=== PATIENT | female | born 1990 | race Caucasian/White ===

== ENCOUNTER 2017-03-01 17:58 | Inpatient (IN) | payer BC ==
[~2017-03-01] VITALS: Ht 162.6 cm; Wt 103.3 kg
[2017-03-01 20:00] VITALS: BP 124/65; RESP 18
[2017-03-01] MEDS: HYDROmorphONE 1 MG/ML SYG IV PRN (21:46)
[2017-03-01 21:59] VITALS: Ht 162.6 cm; Wt 103.3 kg
[2017-03-01] MEDS: HYDROCODONE/APAP (5/325) TAB PO PRN (23:40)
[2017-03-02] MEDS ORDERED: MAGNESIUM HYDROXIDE 30ML CUP PO PRN (03:06)
[2017-03-02] MEDS ORDERED: LACTULOSE 30ML CUP PO PRN (03:06)
[2017-03-02] MEDS ORDERED: ACETAMINOPHEN 325 MG TAB PO PRN (03:06)
[2017-03-02] MEDS ORDERED: BISACODYL 10 MG SUPP PR PRN (03:06)
[2017-03-02] MEDS: HYDROCODONE/APAP (5/325) TAB PO PRN ×5 (03:27→23:44)
[2017-03-02 03:59] LABS: ADD UMIC YES; URINE BILIRUBIN (Dip) NEGATIVE (NEGATIVE); URINE BLOOD (Dip) 2+ (NEGATIVE); URINE COLOR LT. YELLOW (YELLOW); URINE GLUCOSE (Dip) NEGATIVE (NEGATIVE); URINE KETONES (Dip) NEGATIVE (NEGATIVE); URINE LEUKOCYTE ESTERASE (Dip) NEGATIVE (NEGATIVE); URINE NITRITE (Dip) NEGATIVE (NEGATIVE); URINE TOTAL PROTEIN (Dip) NEGATIVE (NEGATIVE); URINE UROBILINOGEN (Dip) 1.0 E.U./dL (0.1-1.0)
[2017-03-02 04:23] LABS: BACTERIA,URINE MODERATE; SQUAMOUS EPITHELIAL CELL,UR MODERATE; URINE RBCS 0-2 /HPF (0)
[2017-03-02 06:52] LABS: ADD SCAN DIFF NO
[2017-03-02 06:56] LABS: BASOPHIL # 0.1 10^3/ul (0.0-0.1); BASOPHILS % 0.9 % (0.0-2.0); EOSINOPHILS # 0.6 10^3/ul (0.0-0.5); EOSINOPHILS % 6.6 % (0.0-7.0); HEMATOCRIT 27.6 % (37.0-47.0); HEMOGLOBIN 8.6 g/dl (12.0-16.0); LYMPHOCYTES % 23.5 % (15.0-51.0); MEAN CORPUSCULAR HGB CONC 31.2 g/dl (32.0-37.0); MEAN CORPUSCULAR VOLUME 96.2 fl (82.0-101.0); MEAN PLATELET VOLUME 9.6 fl (7.4-10.4); MONOCYTE # 0.7 10^3/ul (0.3-0.9); MONOCYTES % 8.8 % (0.0-11.0); NEUTROPHILS % 59.7 % (39.0-77.0); PLATELET COUNT 469 10^3/UL (140-415); RED BLOOD COUNT 2.87 10^6/ul (4.20-5.40); RED CELL DISTRIBUTION WIDTH 16.2 % (11.5-14.5); WHITE BLOOD COUNT 8.4 10^3/ul (4.8-10.8)
[2017-03-02 07:17] LABS: ALBUMIN 3.6 g/dl (3.3-4.9); ALBUMIN/GLOBULIN RATIO 1.38; BILIRUBIN,INDIRECT 0.2 mg/dl (0-1.1); BILIRUBIN,TOTAL 0.2 mg/dl (0.2-1.3); CALCIUM 8.5 mg/dl (8.4-10.2); CREATININE 0.53 mg/dl (0.44-1.00); POTASSIUM 4.2 mmol/L (3.5-5.1); TOTAL PROTEIN 6.2 g/dl (6.1-8.1)
[2017-03-02 07:46] VITALS: BP 116/75; RESP 18
[2017-03-02] MEDS: HYDROmorphONE 1 MG/ML SYG IV PRN ×3 (08:00→20:16)
[2017-03-02] MEDS: DOCUSATE SODIUM 100 MG CAP PO SCH ×2 (09:22→20:15)
[2017-03-02] MEDS: POLYETHYLENE GLYCOL 17 GM PACKET PO SCH (09:22)
[2017-03-02] MEDS: ENOXAPARIN 40 MG/0.4 ML SYG SC SCH (09:30)
[2017-03-02 10:00] VITALS: BP 111/64; RESP 18
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
[2017-03-02] MEDS: SENNA TAB PO SCH (20:15)
[2017-03-03 07:30] VITALS: BP 107/75; RESP 20
[2017-03-03] MEDS: HYDROmorphONE 1 MG/ML SYG IV PRN ×3 (07:43→20:57)
[2017-03-03] MEDS: POLYETHYLENE GLYCOL 17 GM PACKET PO SCH (08:53)
[2017-03-03] MEDS: DOCUSATE SODIUM 100 MG CAP PO SCH ×2 (08:53→20:56)
[2017-03-03] MEDS: ENOXAPARIN 40 MG/0.4 ML SYG SC SCH (08:56)
[2017-03-03] MEDS: HYDROCODONE/APAP (5/325) TAB PO PRN ×2 (10:59→18:16)
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
[2017-03-03 20:08] VITALS: BP 116/70; RESP 18
[2017-03-03] MEDS: SENNA TAB PO SCH (20:57)
[2017-03-04] MEDS: HYDROCODONE/APAP (5/325) TAB PO PRN ×3 (00:25→16:02)
[2017-03-04] MEDS: HYDROmorphONE 1 MG/ML SYG IV PRN ×4 (07:14→20:21)
[2017-03-04] MEDS: DOCUSATE SODIUM 100 MG CAP PO SCH ×2 (08:58→20:20)
[2017-03-04] MEDS: POLYETHYLENE GLYCOL 17 GM PACKET PO SCH (08:58)
[2017-03-04] MEDS: ENOXAPARIN 40 MG/0.4 ML SYG SC SCH (09:09)
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
[2017-03-04] MEDS ORDERED: HYDROmorphONE 1 MG/ML SYG IV STA (10:46)
--- NOTE | 2017-03-04 10:46 | RADRPT ---
PROCEDURE: XR Chest. CLINICAL INDICATION: History of pneumothorax with chest tube placement. Dyspnea. TECHNIQUE: Single frontal chest x-ray. COMPARISON: None. FINDINGS: There is pleural thickening or fluid seen along the right lateral thorax and costophrenic angle. Fo edenilson atelectasis is also seen in the right costophrenic angle. . The remainder of the lungs are dorina r of infiltrates or edema. There is no left pleural effusion. There is no definite pneumothorax or chest tube in place.. The cardiomediastinal silhouette is unremarkable. The osseous structures are intact. IMPRESSION: Pleural thickening or effusion along the right lateral thorax. Atelectasis or scarring at the right costophrenic angle. No evidence of pneumothorax or chest tube.. RPTAT: QQ .Red Dhillon MD, Date Time Electronically viewed and signed by .Red Dhillon MD, on 03/04/2017 10:45 .L/
[2017-03-04] MEDS ORDERED: HYDROmorphONE 1 MG/ML SYG IV PRN (13:00)
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
[2017-03-04] MEDS: SENNA TAB PO SCH (20:20)
[2017-03-05] MEDS: HYDROmorphONE 1 MG/ML SYG IV PRN ×5 (00:46→21:03)
[2017-03-05] MEDS: HYDROCODONE/APAP (5/325) TAB PO PRN ×2 (03:18→10:47)
[2017-03-05 07:30] VITALS: BP 119/69; RESP 18
[2017-03-05] MEDS: POLYETHYLENE GLYCOL 17 GM PACKET PO SCH (09:06)
[2017-03-05] MEDS: DOCUSATE SODIUM 100 MG CAP PO SCH ×2 (09:06→21:02)
[2017-03-05] MEDS: ENOXAPARIN 40 MG/0.4 ML SYG SC SCH (09:07)
--- NOTE | 2017-03-05 12:00 | CONS ---
Date/Time of Note Date/Time of Note DATE: 03/05/17 TIME: 12:00 Consult Date/Type/Reason Admit Date/Time Mar 01, 2017 at 18:31 Objective Vital Signs Date Time Temp Pulse Resp B/P Pulse Ox O2 Delivery O2 Flow Rate FiO2 03/05/17 07:30 98.9 78 18 119/69 94 Intake and Output 03/04/17 03/04/17 03/05/17 15:00 23:00 07:00 Intake Total 420 ml 810 ml Balance 420 ml 810 ml INTERDISCIPLINARY TEAM CONFERENCE BOWEL- Cont BLADDER-Cont SKIN- intact OT- DRESSING-min/mod BATHING-min/mod TOILETING-min/mod PT- BED MOBILITY-min TRANSFERS-min W.C. MOBILITY-sba S A/P- Interdisciplinary team conference held today. Please see interdisciplinary sheet. Working toward d.c. on 03/14 with post discharge follow up of physical therapy, occupational therapy. Results/Medications Result Diagram: 03/02/1732 03/02/17631 Medications Current Medications Acetaminophen/ Hydrocodone Bitart ([place] (5/325)) 2 tab Q4H PRN PO PAIN LEVEL 6 -10 Last administered on 03/05/17 10:47; Admin Dose 2 TAB; Start 03/01/17 at 20: 00 Acetaminophen/ Hydrocodone Bitart ([place] (5/325)) 1 tab Q4H PRN PO MODERATE PAIN LEVEL 4-6 Last administered on 03/02/17 11:15; Admin Dose 1 TAB; Start 03/01 at 20:00 Enoxaparin Sodium (Lovenox) 40 mg DAILY SC Last administered on 03/05/17 09:07 ; Admin Dose 40 MG; Start 03/02/17 at 09:00 Polyethylene Glycol (Miralax) 17 gm DAILY PO Last administered on 03/05/17 09: 06; Admin Dose 17 GM; Start 03/02/17 at 09:00 Docusate Sodium (Colace) 100 mg BID PO Last administered on 03/05/17 09:06; Admin Dose 100 MG; Start 03/02/17 at 09:00 Senna (Senokot) 1 tab HS PO Last administered on 03/04/17 20:20; Admin Dose 1 TAB; Start 03/02/17 at 21:00 Acetaminophen (Tylenol Tab) 650 mg Q4H PRN PO PAIN; Start 03/02/17 at 03:06 Bisacodyl (Dulcolax Supp) 10 mg DAILY PRN [place] CONSTIPATION; Start 03/02/17 at 03: 06 Magnesium Hydroxide (Milk Of Mag) 30 ml BID PRN PO CONSTIPATION; Start 03/02/17 at 03:06 Lactulose (Enulose) 20 gm DAILY PRN PO CONSTIPATION; Start 03/02/17 at 03:06 Hydromorphone HCl (Dilaudid) 1 mg Q4H PRN IV PAIN Last administered on 08:11; Admin Dose 1 MG; Start 03/04/17 at 11:00 FLASH CALVILLO MD Mar 05, 2017 12:00 FLASH CALVILLO MD Mar 05, 2017 12:00
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
[2017-03-05 20:01] VITALS: BP 120/70; RESP 18
[2017-03-05] MEDS: SENNA TAB PO SCH (21:01)
[2017-03-06] MEDS: HYDROmorphONE 1 MG/ML SYG IV PRN ×4 (01:02→23:22)
[2017-03-06] MEDS: HYDROCODONE/APAP (5/325) TAB PO PRN ×2 (06:49→20:46)
[2017-03-06 08:00] VITALS: BP 117/70; PULSE 84; RESP 18
[2017-03-06] MEDS: POLYETHYLENE GLYCOL 17 GM PACKET PO SCH (08:52)
[2017-03-06] MEDS: DOCUSATE SODIUM 100 MG CAP PO SCH ×2 (08:52→20:44)
[2017-03-06] MEDS: ENOXAPARIN 40 MG/0.4 ML SYG SC SCH (08:53)
[2017-03-06] MEDS ORDERED: HYDROmorphONE 1 MG/ML SYG IV STA (11:01)
--- NOTE | 2017-03-06 11:53 | RADRPT ---
PROCEDURE: XR Forearm. CLINICAL INDICATION: pain TECHNIQUE: AP and lateral views of the right forearm were obtained. COMPARISON: No prior studies are available for comparison. FINDINGS: The patient is status post fixation of a mid radial and ulnar fracture with metallic plates and mult iple screws. There is appropriate bony alignment. There is normal mineralization and alignment. The soft tissues are unremarkable. RPTAT: AA IMPRESSION: Status post fixation of the left mid radial and ulnar fractures. .Hang Dimas MD, MD Date Time Electronically viewed and signed by .Hang Dimas MD, on 03/06/2017 11:53 .S/
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
[2017-03-06 19:53] VITALS: BP 108/62; RESP 18
[2017-03-06] MEDS: SENNA TAB PO SCH (20:44)
[2017-03-07 08:03] VITALS: BP 113/72; RESP 18
[2017-03-07] MEDS: DOCUSATE SODIUM 100 MG CAP PO SCH ×2 (08:19→20:19)
[2017-03-07] MEDS: HYDROmorphONE 1 MG/ML SYG IV PRN (08:19)
[2017-03-07] MEDS: POLYETHYLENE GLYCOL 17 GM PACKET PO SCH (08:19)
[2017-03-07] MEDS: ENOXAPARIN 40 MG/0.4 ML SYG SC SCH (08:24)
[2017-03-07] MEDS ORDERED: HYDROmorphONE 2 MG TAB PO PRN (10:00)
[2017-03-07] MEDS: HYDROCODONE/APAP (5/325) TAB PO PRN ×3 (10:21→22:47)
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
[2017-03-07] MEDS: HYDROmorphONE 2 MG TAB PO PRN (19:18)
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
[2017-03-07 20:00] VITALS: BP 118/69; RESP 18
[2017-03-07] MEDS: SENNA TAB PO SCH (20:19)
[2017-03-08] MEDS: HYDROmorphONE 2 MG TAB PO PRN ×4 (00:08→16:03)
[2017-03-08 07:30] VITALS: BP 112/67; RESP 18
[2017-03-08] MEDS: HYDROCODONE/APAP (5/325) TAB PO PRN (08:50)
[2017-03-08] MEDS: POLYETHYLENE GLYCOL 17 GM PACKET PO SCH (09:58)
[2017-03-08] MEDS: DOCUSATE SODIUM 100 MG CAP PO SCH (09:58)
[2017-03-08] MEDS: ENOXAPARIN 40 MG/0.4 ML SYG SC SCH (09:59)
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
== END 2017-03-08 17:30 | disposition home health service (06) | DRG 561 ==
LOC: VRC 18:31
PROVIDERS: ADMIT Physical Medicine & Rehabilitation; ATTEND Internal Medicine
DX: S32.401D Unspecified fracture of right acetabulum, subsequent encounter for fracture with routine healing (principal); F11.10 Opioid abuse, uncomplicated; S52.301D Unspecified fracture of shaft of right radius, subsequent encounter for closed fracture with routine healing; S52.201D Unspecified fracture of shaft of right ulna, subsequent encounter for closed fracture with routine healing; S22.43XD Multiple fractures of ribs, bilateral, subsequent encounter for fracture with routine healing; S32.059D Unspecified fracture of fifth lumbar vertebra, subsequent encounter for fracture with routine healing; S82.141D Displaced bicondylar fracture of right tibia, subsequent encounter for closed fracture with routine healing; S82.51XD Displaced fracture of medial malleolus of right tibia, subsequent encounter for closed fracture with routine healing; V49.9XXD Car occupant (driver) (passenger) injured in unspecified traffic accident, subsequent encounter; R52 Pain, unspecified; F15.10 Other stimulant abuse, uncomplicated; F10.10 Alcohol abuse, uncomplicated; Z74.09 Other reduced mobility
CPT/HCPCS: 71010; 80053; 81001; 85025; 87081; 87086; 97110; 97112; 97150; 97163; 97167; 97530; 97535; 97542; J1170; J1650